=== PATIENT | male | born 1975 | race Caucasian/White ===

== ENCOUNTER 2024-06-28 07:35 | Day surgery (SDC) | payer OTHER ==
[~2024-06-28] VITALS: Ht 172.7 cm; Wt 123.0 kg
[2024-06-28] VITALS (12 sets, daily range): BP systolic 155–174; BP diastolic 89–111; PULSE 72–82; RESP 11–18; TEMP 97.9; O2SAT 94–99
[~2024-06-28 07:35] MED LIST: ARIP5TAB12 PO; ASPI-611 PO; ATOR20TA66 PO; BUPIVAcaine 2.5mg/ml inj 50ml vial (contains preservative) ONE; BUPR1FIL3 SL; DICL20GE TD; DULA0.75 SUBCUT; EMPA25TA PO; FLO0.4C PO; HYDR12.55 PO; IBUP-2697 PO; INSU100V49 SUBCUT; LANTUS SUBCUT; LINE600T11 PO; SELE120S3 TOP; SULF1TAB49 PO; TRIA16.911 BOTHNARES; VANCOMYCIN 1,500MG inj. 1,500 MG in normal saline 500ml IV soln 300 ML IV ONE; XAL0.005OS OP; bacitracin 15gm ointment TP ONE; famotidine 20mg tablet PO ONE; ringers solution, lacted 1,000 ML IV SCH; vancomycin 1,000mg inj ONE
[2024-06-28] MEDS: VANCOMYCIN/WATER FOR INJ (PEG) 1.5GM/300 ML IVPB IV ONE (07:50)
[2024-06-28] MEDS ORDERED: sevoflurane 250ml liquid IH ONE (08:55)
[2024-06-28] MEDS ORDERED: midazolam 1 mg/ML 2ml injection ONE (08:56)
[2024-06-28] MEDS ORDERED: fentaNYL /PF 50mcg/ml 5ml ampule ONE (08:56)
[2024-06-28] MEDS ORDERED: rocuronium 10mg/ml inj IV ONE (08:58)
[2024-06-28] MEDS ORDERED: LIDOcaine 2% (20mg/ml) 5ml vial ONE (08:59)
[2024-06-28] MEDS ORDERED: propofol inj 20 ML IV ONE (08:59)
[2024-06-28] MEDS ORDERED: ROPIVAcaine 0.5% (5mg/ml) 30ml vial ONE (09:09)
[2024-06-28] MEDS ORDERED: ondansetron/PF 4mg/2ml inj ONE (09:23)
[2024-06-28] MEDS ORDERED: tobramycin sulfate 1.2gm vial ONE (09:23)
[2024-06-28] MEDS ORDERED: acetaminophen 1,000mg/100ml IV 100 ML IV ONE (09:31)
[2024-06-28] MEDS ORDERED: labetalol 20mg/4ml (5mg/ml) syringe IV ONE (09:46)
[2024-06-28] MEDS ORDERED: ringers solution, lacted 1,000 ML IV SCH (09:50)
[2024-06-28] MEDS ORDERED: fentaNYL/PF 50MCG/1 ML 2ML syringe IV PRN ×2 (09:50)
[2024-06-28] MEDS ORDERED: hydrALAZINE 20mg/ml inj. IV PRN (09:50)
[2024-06-28] MEDS ORDERED: ondansetron/PF 4mg/2ml inj IV PRN (09:50)
[2024-06-28] MEDS ORDERED: sugammadex 200mg/2ml injection IV ONE (10:05)
[2024-06-28] MEDS: labetalol 20mg/4ml (5mg/ml) syringe IV PRN (10:42)
[2024-06-28] MEDS: morphine 4 MG/ML inj SYRINge IV PRN (10:56)
[2024-06-28] MEDS: morphine 2 MG/ML inj. syringe IV PRN (11:19)
[2024-06-28] MEDS: ondansetron/PF 4mg/2ml inj IV PRN (11:19)
== END 2024-06-28 11:42 ==
LOC: OR 07:35 → EEVIPCON 11:00 → OR 11:42
PROVIDERS: ATTEND Orthopaedic Surgery
DX: T84.84XA Pain due to internal orthopedic prosthetic devices, implants and grafts, initial encounter (principal); Y83.8 Other surgical procedures as the cause of abnormal reaction of the patient, or of later complication, without mention of misadventure at the time of the procedure; I10 Essential (primary) hypertension; E11.9 Type 2 diabetes mellitus without complications; G47.30 Sleep apnea, unspecified; F32.A Depression, unspecified; E78.5 Hyperlipidemia, unspecified; Z98.890 Other specified postprocedural states; Z88.0 Allergy status to penicillin; Z91.030 Bee allergy status; Z79.899 Other long term (current) drug therapy
CPT/HCPCS: 20680; 64999; 82948; J0131; J1100; J2003; J2250; J2270; J2405; J2704; J2795; J3010; J3370; J3372; J3490; J7030; J7120; Z7506; Z7508; Z7512; A4215; A4618; A6449; A7000; J3260